=== PATIENT | female | born 1995 | race Caucasian/White ===

== ENCOUNTER → 2018-02-21 14:00 | Outpatient (CLI) | payer SELFPAY | PROVIDERS: Family Provider Family Medicine; PCP Family Medicine | DX: Z23 Encounter for immunization (principal) | CPT/HCPCS: 90471; 90686 ==

== ENCOUNTER → 2018-07-22 16:49 | Outpatient (CLI) | payer OTHER, MEDICAID, SELFPAY ==
[2018-07-22 18:41] LABS: Urine N gonorrhoeae NOT DETECTED
[2018-07-22 18:47] LABS: Urine Chlamydia NOT DETECTED
== END ==
PROVIDERS: Family Provider Family Medicine; PCP Family Medicine; Visit Provider Physician Assistant
DX: R30.0 Dysuria (principal)
CPT/HCPCS: 87086; 87491; 87591

== ENCOUNTER 2018-07-24 14:50 | Emergency (ER) | payer OTHER, MEDICAID, SELFPAY ==
[2018-07-24 14:55] VITALS: BP 117/75; PULSE 81; RESP 18; TEMP 37; O2SAT 99; BMI 24.5
[2018-07-24 15:56] LABS: RBC Urine >100/HPF (0-5/HPF)
[2018-07-24 15:57] LABS: Bacteria Urine Many (>30); Culture Indicated Urine Specimen Cultured; Squamous Epithelial Cell Urine 0-1 /HPF; WBC Urine 30-100/HPF (0-5/HPF)
--- NOTE | 2018-07-24 16:52 | ED.FEMALEGU ---
HPI - Female Genitourinary <MINH Topete - Last Filed: 07/24/18 22:30> General Chief complaint: Urogenital-Female Stated complaint: pain burning during urination with blood Time Seen by Provider: 07/24/18 16:27 Source: patient Mode of arrival: ambulatory Limitations: no limitations History of Present Illness HPI Narrative: 22-year-old healthy female here for complaint of having dysuria and urinary frequency over the past 4 5 days. She was seen in the walk-in clinic a few days ago and had negative urine so was not treated. She reports she has had worsening symptoms since then and now has some blood in her urine. She denies any flank pain. No nausea vomiting. She denies any abdominal pain. No vaginal discharge. No other concerns or complaints at this timeframe. MD Complaint: dysuria and UTI Related Data Home Medications Medication Instructions Recorded Confirmed etonogestrel 68 mg subdermal SUBDERMAL each 07/22/18 07/22/18 implant Previous Rx's Medication Instructions Recorded sulfamethoxazole-trimethoprim 1 tab PO Q12H #14 tab 07/24/18 Allergies Allergy/AdvReac Type Severity Reaction Status Date / Time amoxicillin [AMOXICILLIN] Allergy Unknown RASH Verified 07/24/18 15:00 Review of Systems <MINH Topete - Last Filed: 07/24/18 22:30> Constitutional Denies chills, Denies fever(s), Denies lethargy and Denies weakness Eyes Denies change in vision, Denies eye discharge, Denies irritation and Denies loss of vision ENT Ears, Nose, Mouth, and Throat: Denies change in voice, Denies neck pain and Denies sore throat Cardiovascular Denies chest pain, Denies irregular heart rhythm, Denies lightheadedness, Denies palpitations, Denies dyspnea, Denies dyspnea on exertion and Denies orthopnea Respiratory Denies cough, Denies dyspnea, Denies dyspnea on exertion and Denies wheezing Gastrointestinal Gastrointestinal: Denies abdominal pain, Denies change in bowel habits, Denies diarrhea, Denies nausea and Denies vomiting Genitourinary Reports dysuria Comments: Hematuria Musculoskeletal Denies neck pain Neurologic Denies confusion, Denies loss of vision and Denies weakness Psychiatric Denies anxiety, Denies confusion, Denies depression, Denies homicidal ideation and Denies suicidal ideation Endocrine Denies palpitations Hematologic/Lymphatic Denies easy bruising Allergic/Immunologic Denies wheezing PFSH <MINH Topete - Last Filed: 07/24/18 22:30> Social History Smoking Status: Never smoker alcohol intake: never Social History Smoking Status: Never smoker alcohol intake: never Exam <MINH Topete - Last Filed: 07/24/18 22:30> Initial Vital Signs Initial Vital Signs: Vital Signs Temperature 98.6 F 07/24/18 14:55 Pulse Rate 81 07/24/18 14:55 Respiratory Rate 18 07/24/18 14:55 Blood Pressure 117/75 07/24/18 14:55 Pulse Oximetry 99 07/24/18 14:55 Const General: cooperative and well developed Nutritional Appearance: well nourished Orientation: alert, awake, oriented x3 and not confused HENMT Mouth: oral mucosae normal and moist mucous membranes Eyes Eyelids: eyelids normal Conjunctivae: conjunctivae normal Sclera: sclerae normal Pupils: PERRL EOM: EOM intact bilaterally Resp Effort & Inspection: normal respiratory effort, able to speak in complete sentences, no respiratory distress and no use of accessory muscles Auscultation: clear to auscultation bilaterally, no rales, no rhonchi and no wheezes Cardio Rate: regular rate Rhythm: regular rhythm Heart Sounds: no click, no gallops, no murmurs and no rubs Pulses: normal peripheral pulses GI Inspection: non-distended Palpation: soft, no hepatosplenomegaly, No guarding, No pulsatile mass and No tender Auscultation: normal bowel sounds General: No CVA tenderness Skin General: no rashes or lesions noted, No jaundice and No petechiae Neuro General: alert, oriented x3, gait normal and no focal motor deficits Speech: speech normal <Perla Hawley MD - Last Filed: 07/28/18 12:20> Initial Vital Signs Initial Vital Signs: Vital Signs Temperature 98.6 F 07/24/18 14:55 Pulse Rate 81 07/24/18 14:55 Respiratory Rate 18 07/24/18 14:55 Blood Pressure 117/75 07/24/18 14:55 Pulse Oximetry 99 07/24/18 14:55 Course <MINH Topete - Last Filed: 07/24/18 22:30> Orders Ordered: ED Orders 07/24/18 15:15 Urine Culture Stat Urine Microscopic Stat Vital Signs - 8 hr 07/24/18 14:55 Temperature 98.6 F Pulse Rate 81 Respiratory Rate 18 Blood Pressure 117/75 Pulse Oximetry 99 <Perla Hawley MD - Last Filed: 07/28/18 12:20> Orders Ordered: ED Orders 07/24/18 15:15 Urine Culture Stat Urine Microscopic Stat Vital Signs - 8 hr 07/24/18 14:55 Temperature 98.6 F Pulse Rate 81 Respiratory Rate 18 Blood Pressure 117/75 Pulse Oximetry 99 MDM - Female Genitourinary <MINH Topete - Last Filed: 07/24/18 22:30> Lab Data Lab Results 07/24/18 Range/Units 15:15 Urine RBC >100/hpf H (0-5/HPF) Urine WBC 30-100/hpf H (0-5/HPF) Ur Squamous Epith Cells 0-1 /hpf Urine Bacteria Many (>30) H (None) Ur Culture Indicated? Specimen cultured Point of Care Testing Test Results Negative Urine Dip Bedside Urine Glucose Negative Bedside Urine Bilirubin - Negative Bedside Urine Ketone - Negative Urine Specific [place] 1.020 Bedside Urine Occult Blood +++ Bedside Urine pH 6.0 Bedside Urine Protein +/- 15 Bedside Urine Urobilinogen - Negative Bedside Urine Nitrite - Negative Bedside Urine Leukocytes ++ 125 Esterase MDM Narrative Medical decision making narrative: Urinalysis Indicates urinary tract infection. Urine culture is pending. She reports that she had a urinary tract infection in the past were Macrobid was used and which urine culture showed Macrobid was not effective she is placed on Septra. She is encouraged to drink plenty of fluids. Follow up with primary care for the next few days for re-evaluation. She is also prescribed Pyridium to help with dysuria. For any worsening symptoms return emergency room for <Perla Hawley MD - Last Filed: 07/28/18 12:20> Lab Data Lab Results 07/24/18 Range/Units 15:15 Urine RBC >100/hpf H (0-5/HPF) Urine WBC 30-100/hpf H (0-5/HPF) Ur Squamous Epith Cells 0-1 /hpf Urine Bacteria Many (>30) H (None) Ur Culture Indicated? Specimen cultured Point of Care Testing Test Results Negative Urine Dip Bedside Urine Glucose Negative Bedside Urine Bilirubin - Negative Bedside Urine Ketone - Negative Urine Specific [place] 1.020 Bedside Urine Occult Blood +++ Bedside Urine pH 6.0 Bedside Urine Protein +/- 15 Bedside Urine Urobilinogen - Negative Bedside Urine Nitrite - Negative Bedside Urine Leukocytes ++ 125 Esterase Discharge Plan Departure Patient Disposition: Home Clinical Impression: Urinary tract infection Qualifiers: Urinary tract infection type: acute cystitis Hematuria presence: with hematuria Qualified Code(s): N30.01 - Acute cystitis with hematuria Discharge Date/Time: 07/24/18 17:34 Interventions: ED Discharge Assessment Last Done: 07/24/18 17:33 Instructions: DI for Urinary Tract Infection (UTI) Activity Restrictions/Additional Instructions: Urinalysis indicates urinary tract infection. Urine placed on antibiotic called Septra use as directed. Plenty of fluids. Pyridium is also prescribed to help with painful urination use as directed. Be aware that the Pyridium will make your urine turn orange. Follow up with her primary care provider. Return emergency room for any worsening symptoms. Prescriptions: New sulfamethoxazole-trimethoprim 800-160 mg tablet 1 tab PO Q12H Qty: 14 RF: 0 No Action Nexplanon 68 mg implant Subdermal RF: 0 Referrals: Herb Monte MD [Primary Care Provider] -
== END 2018-07-24 17:34 | disposition home or self-care (01) ==
PROVIDERS: Emergency Provider Nurse Practitioner Family; Family Provider Family Medicine; PCP Family Medicine
DX: N30.01 Acute cystitis with hematuria (principal)
CPT/HCPCS: 81003; 81015; 81025; 87086; 99282; 99283

== ENCOUNTER → 2019-02-23 14:26 | Outpatient (CLI) | payer OTHER, SELFPAY | PROVIDERS: PCP Family Medicine | DX: Z23 Encounter for immunization (principal) | CPT/HCPCS: 90471; 90686 ==

== ENCOUNTER → 2020-02-15 10:06 | Outpatient (CLI) | payer OTHER, SELFPAY ==
[2020-02-16 14:33] LABS: COVID19 Sendout Not Detected (Not Detect)
== END ==
PROVIDERS: PCP Family Medicine; Visit Provider Nurse Practitioner
DX: Z11.59 Encounter for screening for other viral diseases (principal)
CPT/HCPCS: 87635

== ENCOUNTER → 2020-02-16 | Outpatient (CLI) | payer OTHER, SELFPAY | PROVIDERS: PCP Family Medicine; Referring Provider Internal Medicine; Visit Provider Internal Medicine | DX: Z23 Encounter for immunization (principal) | CPT/HCPCS: 90471; 90686 ==

== ENCOUNTER → 2020-05-23 10:09 | Outpatient (CLI) | payer OTHER, SELFPAY ==
[2020-05-23] MEDS: COVID-19 VACC(MODERNA-1)/PF 100 MCG/0.5 ML VIAL IM (10:12)
== END ==
PROVIDERS: Visit Provider Internal Medicine
DX: Z23 Encounter for immunization (principal)
CPT/HCPCS: 0011A; 91301

== ENCOUNTER → 2020-06-18 10:16 | Outpatient (CLI) | payer OTHER, SELFPAY ==
[2020-06-18] MEDS: COVID-19 VACC #2, MRNA(MOD) 100 MCG/0.5 ML VIAL IM (10:20)
== END ==
PROVIDERS: Visit Provider Internal Medicine
DX: Z23 Encounter for immunization (principal)
CPT/HCPCS: 0012A; 91301

== ENCOUNTER → 2021-02-21 | Outpatient (CLI) | payer OTHER, SELFPAY | PROVIDERS: Referring Provider Internal Medicine; Visit Provider Internal Medicine | DX: Z23 Encounter for immunization (principal) | CPT/HCPCS: 90471; 90686 ==

== ENCOUNTER 2021-04-23 02:52 | Emergency (ER) | payer OTHER, SELFPAY ==
--- NOTE | 2021-04-23 02:57 | DI.RAD.S_ITS ---
PROCEDURE: XR WRIST LT MIN 3V INDICATIONS: fall TECHNIQUE: 4 views of the wrist were acquired. COMPARISON: None. FINDINGS: Bones: There is radial metaphyseal fracture with impaction and mild angulation. Minimally displaced ulnar styloid fracture is noted. No suspicious bony lesions. Scaphoid view: Scaphoid appears intact Soft tissues: No suspicious soft tissue calcifications. Soft tissue swelling. IMPRESSION: 1. Distal radial metaphyseal fracture. 2. Ulnar styloid fracture. Dictated by: Joana Saul M.D. on 04/23/2021 at 8:59 Approved by: Joana Saul M.D. on 04/23/2021 at 9:00
[2021-04-23 03:00] VITALS: BP 120/80; PULSE 88; RESP 18; TEMP 36.6; O2SAT 98
--- NOTE | 2021-04-23 03:06 | PC.NURSE ---
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 Pt has a bag of frozen vegetables placed on L wrist.
--- NOTE | 2021-04-23 03:10 | ED.GENADULT ---
HPI - General Adult General Chief complaint: Extremity Injury, Upper Stated complaint: left wrist injury Time Seen by Provider: 04/23/21 02:56 Source: patient Mode of arrival: Ambulatory Limitations: no limitations History of Present Illness HPI narrative: Patient is a 25-year-old female. 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 There was an incident during the celebration when she fell backwards landing on both of her arms outstretched. She is here for evaluation of a left wrist injury. She states she did not hit her head. No other injuries from the event. Related Data Home Medications Medication Instructions Recorded Confirmed etonogestrel 68 mg subdermal SUBDERMAL each 07/22/18 07/22/18 implant (Nexplanon) Previous Rx's Medication Instructions Recorded sulfamethoxazole 800 1 tab PO Q12H #14 tab 07/24/18 mg-trimethoprim 160 mg tablet Allergies Allergy/AdvReac Type Severity Reaction Status Date / Time amoxicillin [AMOXICILLIN] Allergy Unknown RASH Verified 07/24/18 15:00 Review of Systems Musculoskeletal Musculoskeletal: Reports system reviewed and no additional complaints, except as documented Integumentary/Breasts Skin/Breast: Reports system reviewed and no additional complaints, except as documented Neurologic Neurologic: Reports system reviewed and no additional complaints, except as documented Hematologic/Lymphatic On Anticoagulants: No Patient History Medical History Epigastric pain Nausea Social History Smoking Status: Never smoker alcohol intake: never Smoking Status: Never smoker alcohol intake frequency: a few times a month Substance Use Type: does not use Exam Initial Vital Signs Initial Vital Signs: Vital Signs Temperature 98 F 04/23/21 03:00 Pulse Rate 88 04/23/21 03:00 Respiratory Rate 18 04/23/21 03:00 Blood Pressure 120/80 04/23/21 03:00 Pulse Oximetry 98 04/23/21 03:00 Const General: cooperative and healthy appearing Cardio Pulses: radial pulses present bilaterally Skin General: no rashes or lesions noted Neuro Sensory Exam: no sensory deficits noted Extrem Other: Patient does have obvious deformity to the left wrist. No tenderness over the snuffbox of the left. Her elbow and shoulder unremarkable. Patient's right elbow and shoulder unremarkable. Does have swelling of the distal radius dorsum. Procedures Orthopedic Splinting/Casting Injury #1: Side: left Upper Extremity Injury Location: wrist Upper Extremity Immobilizer: sugar tong splint Other Orthopedic Equipment: other (Sling) Post splinting neuro exam: no change Post splinting vascular exam: no change Placed by: Provider Course Orders Ordered: ED Orders 04/23/21 02:57 XR wrist LT min 3V Stat 04/23/21 03:33 XR wrist RT min 3V Stat Vital Signs Vital signs: Vital Signs - 8 hr 04/23/21 03:00 Temperature 98 F Pulse Rate 88 Respiratory Rate 18 Blood Pressure 120/80 Pulse Oximetry 98 Medical Decision Making Imaging Data Extremity x-ray #1: Radiologist's Impression: Left wrist x-ray Distal radius metaphysis and ulnar styloid fractures Extremity x-ray #2: Radiologist's Impression: Right wrist x-ray No acute bony abnormality MDM Narrative Medical decision making narrative: Patient does have a distal radius and ulnar styloid fracture on the left. She is neurovascularly intact. Splint was placed as described above. Does have swelling on the dorsal aspect of the right wrist however x-ray does not show any signs of fracture. Will discharge home with care instructions and return precautions. She expressed understanding and agreement. Discharge Plan Departure Patient Disposition: Home Clinical Impression: Fracture of wrist Instructions: How to Use a Sling, How to Take Care of Your Splint, DI for Distal Radius Fracture Activity Restrictions/Additional Instructions: The splint that was placed today does need to stay on in stay clean and stay dry. You do need to treat it like a cast. You will need follow-up with Orthopedics because this splint will need to be transitioned into a cast. Contact the [facility] at the number provided below. Return to the emergency department for any new or worsening symptoms Prescriptions: No Action Nexplanon 68 mg implant Subdermal 0RF sulfamethoxazole-trimethoprim 800-160 mg tablet 1 tab PO Q12H Qty: 14 0RF Referrals: Alvaro Soria MD [Physician] -
--- NOTE | 2021-04-23 03:33 | DI.RAD.S_ITS ---
PROCEDURE: XR WRIST RT MIN 3V INDICATIONS: swelling after fall TECHNIQUE: 4 views of the wrist were acquired. COMPARISON: None. FINDINGS: Bones: No definitive fractures or dislocations. There is a small cortical irregularity in the radial metaphysis. No suspicious bony lesions. Scaphoid view: Scaphoid is intact. Soft tissues: No suspicious soft tissue calcifications. IMPRESSION: No definitive fracture or dislocation. Small cortical irregularity in the distal radial metaphysis. If clinical symptoms persist or clinical suspicion for pathology is high, a repeat examination in 7-10 days, or advanced imaging such as CT or MRI is suggested for further evaluation. Dictated by: Joana Saul M.D. on 04/23/2021 at 9:00 Approved by: Joana Saul M.D. on 04/23/2021 at 9:02
== END 2021-04-23 04:02 | disposition home or self-care (01) ==
PROVIDERS: Emergency Provider Emergency Medicine
DX: S52.502A Unspecified fracture of the lower end of left radius, initial encounter for closed fracture (principal); S52.602A Unspecified fracture of lower end of left ulna, initial encounter for closed fracture; W18.30XA Fall on same level, unspecified, initial encounter
CPT/HCPCS: 29125; 73110; 99283

== ENCOUNTER → 2021-05-21 10:59 | Outpatient (CLI) | payer OTHER, SELFPAY ==
[2021-05-21 12:06] LABS: COVID19 -Nasal RAPID Negative (Negative)
== END ==
PROVIDERS: Visit Provider Nurse Practitioner Family
DX: Z20.822 Contact with and (suspected) exposure to COVID-19 (principal); J02.9 Acute pharyngitis, unspecified
CPT/HCPCS: 87070; 87147; 87635

== ENCOUNTER → 2021-06-11 17:06 | Outpatient (CLI) | payer OTHER, SELFPAY ==
[2021-06-11 20:44] LABS: Urine N gonorrhoeae NOT DETECTED
[2021-06-11 20:57] LABS: Urine Chlamydia NOT DETECTED
== END ==
PROVIDERS: Visit Provider Physician Assistant
DX: R30.0 Dysuria (principal)
CPT/HCPCS: 87077; 87086; 87186; 87491; 87591

== ENCOUNTER → 2021-12-30 09:33 | Outpatient (CLI) | payer OTHER, SELFPAY ==
[2021-12-30 10:32] LABS: Add Manual Diff / Slide Review NO; Basophils Absolute Auto 100 /uL (0-100); Eosinophils Absolute Auto 100 /uL (0-450); Eosinophils Percent Auto 1.7 % (2-4); Hematocrit 40.3 % (36-46); Hemoglobin 13.9 g/dL (12.0-16.0); Lymphocytes Absolute Auto 1700 /uL (1100-4500); Lymphocytes Percent Auto 27.1 % (25-40); Mean Corpuscular HGB Conc 34.6 % (30-36); Mean Corpuscular Hemoglobin 30.2 PG (26-34); Mean Corpuscular Volume 87.4 fL (80-100); Monocytes Absolute Auto 400 /uL (0-900); Monocytes Percent Auto 6.4 % (3-14); Neutrophils Absolute Auto 4000 /uL (1500-7000); Neutrophils Percent Auto 63.8 % (50-75); Platelet Count 278 X10^3/uL (150-400); Red Blood Cell Count 4.62 X10^6/uL (4.0-5.2); Red Cell Distribution Width 11.8 % (11.6-14.8); White Blood Cell Count 6.3 X10^3/uL (4.5-11.0)
[2021-12-30 10:33] LABS: Alanine Aminotransferase 15 IU/L (<35); Albumin 4.4 g/dL (3.5-5.0); Albumin Globulin Ratio 1.3 (1.0-2.8); Alkaline Phosphatase 54 U/L (38-126); Aspartate Aminotransferase 21 IU/L (14-36); BUN Creatinine Ratio 15.7 (6-22); Bilirubin Total 0.4 mg/dL (0.2-1.3); Blood Urea Nitrogen 14 mg/dL (7-17); Calcium 8.8 mg/dL (8.4-10.2); Carbon Dioxide 26 mmol/L (22-32); Chloride 103 mmol/L (98-107); Cholesterol 185 mg/dL (140-199); Estimated Glomerular Filt Rate > 60 mL/min (>60); Globulin 3.4 g/dL (1.7-4.1); Glucose 71 mg/dL (70-100); HDL Cholesterol 57 mg/dL (40-60); HEMOLYSIS < 15 (0-50); LDL Cholesterol Calculated 109 mg/dL (<100); Sodium 138 mmol/L (137-145); Total Protein 7.8 g/dL (6.3-8.2); Triglycerides 96 mg/dL (35-150); VLDL Cholesterol Calculated 19 mg/dL (2-30)
[2021-12-30 11:01] LABS: Rubella Antibody IgG 41.8 IU/mL (>15)
[2021-12-30 11:04] LABS: Thyroid Stimulating Hormone 1.41 uIU/mL (0.47-4.68)
[2021-12-31 07:36] LABS: Rubeola Measles IgG > 300.0 AU/mL (Immune >16.4)
== END ==
PROVIDERS: PCP Family Medicine; Referring Provider Family Medicine; Visit Provider Family Medicine
DX: Z00.00 Encounter for general adult medical examination without abnormal findings (principal); Z01.84 Encounter for antibody response examination
CPT/HCPCS: 36415; 80053; 80061; 84443; 85025; 86735; 86762; 86765

== ENCOUNTER → 2022-05-07 15:51 | Outpatient (CLI) | payer OTHER, SELFPAY | PROVIDERS: PCP Family Medicine; Referring Provider Internal Medicine; Visit Provider Internal Medicine | DX: Z23 Encounter for immunization (principal) | CPT/HCPCS: 90471; 90686 ==

== ENCOUNTER → 2022-08-26 08:17 | Outpatient (CLI) | payer OTHER, SELFPAY | PROVIDERS: PCP Family Medicine; Visit Provider Nurse Practitioner Family | DX: N39.0 Urinary tract infection, site not specified (principal) | CPT/HCPCS: 87077; 87086; 87186 ==

== ENCOUNTER → 2022-12-09 09:50 | Outpatient (CLI) | payer OTHER, SELFPAY ==
--- NOTE | 2022-12-09 09:52 | DI.RAD.S_ITS ---
PROCEDURE: XR FOOT RT MIN 3V INDICATIONS: right foot pain TECHNIQUE: 3 views of the foot were acquired. COMPARISON: None. FINDINGS: Bones: No fractures or dislocations. No suspicious bony lesions. Soft tissues: No tibiotalar joint effusion. Achilles tendon appears normal. IMPRESSION: No displaced fracture and no acute bony abnormality. Dictated by: Theron Stokes M.D. on 12/09/2022 at 13:02 Approved by: Theron Stokes M.D. on 12/09/2022 at 13:03
== END ==
PROVIDERS: PCP Family Medicine; Referring Provider Obstetrics & Gynecology; Visit Provider Obstetrics & Gynecology
DX: M79.671 Pain in right foot (principal)
CPT/HCPCS: 73630

== ENCOUNTER → 2023-02-26 03:59 | Outpatient (CLI) | payer OTHER, SELFPAY | PROVIDERS: PCP Family Medicine; Referring Provider Family Medicine; Visit Provider Family Medicine | DX: Z23 Encounter for immunization (principal) | CPT/HCPCS: 90471; 90686 ==

== ENCOUNTER → 2024-03-13 17:16 | Outpatient (CLI) | payer OTHER, SELFPAY | PROVIDERS: PCP Family Medicine; Referring Provider Internal Medicine; Visit Provider Internal Medicine | DX: Z23 Encounter for immunization (principal) | CPT/HCPCS: 90471; 90656 ==